=== PATIENT | female | born 1955 | race Caucasian/White ===

== ENCOUNTER → 2017-01-13 | Outpatient (CLI) | payer BC ==
[~2017-01-13] MED LIST: AMARYL2 MG PO; COUMADIN5 MG PO; COUMADIN7.5 MG PO; KEFLEX500 M1 PO; LEVOTHYROXINE75 MCG PO; LISINOPRIL-HCTZ1 T19 PO; LISINOPRIL20 MG PO; LIVALO2 MG PO; METFORMIN HCL500 M2 PO; PERCOCET 5-3251 TAB PO
[2017-01-13 11:19] LABS: ALBUMIN SERUM 3.5 g/dL (3.5-5.0); ALKALINE PHOSPHATASE 60 U/L (32-92); ALT (SGPT) 17 U/L (10-40); AST (SGOT) 24 U/L (10-42); BILIRUBIN,TOTAL 0.4 mg/dL (0.2-2.0); BLOOD UREA NITROGEN 12 mg/dL (9-23); BUN/CREATININE RATIO 17.14; CALCIUM SERUM 9.3 mg/dL (8.4-10.2); CARBON DIOXIDE 27 mmol/L (22-31); CHLORIDE 109 mmol/L (100-111); CHOLESTEROL 137 mg/dL (0-200); CREATININE SERUM 0.7 mg/dL (0.6-1.4); GLOM FILT RATE Estimated ABOVE60 mL/min (>60); GLUCOSE FASTING 135 mg/dL (70-110); HDL CHOLESTEROL 59 mg/dL (35-95); LDL CHOLESTEROL 63 mg/dL (-130); LDL/HDL RATIO 1 RATIO (0-4); POTASSIUM 5.1 mmol/L (3.5-5.1); PROTEIN TOTAL SERUM 6.8 g/dL (6.0-8.3); SODIUM 140 mmol/L (135-145); TRIGLYCERIDES 77 mg/dL (10-160)
== END | disposition home or self-care (01) ==
LOC: CLAB 09:33
PROVIDERS: Internal Medicine Endocrinology, Diabetes & Metabolism
DX: E78.5 Hyperlipidemia, unspecified (principal); E11.65 Type 2 diabetes mellitus with hyperglycemia
CPT/HCPCS: 36415; 80053; 80061; 82043; 82570; 83036

== ENCOUNTER → 2017-05-11 | Outpatient (CLI) | payer BC ==
[2017-05-11 15:22] LABS: CALCIUM SERUM 9.6 mg/dL (8.4-10.2); GLOM FILT RATE Estimated 59.9 mL/min (>60); POTASSIUM 4.9 mmol/L (3.5-5.1)
== END | disposition home or self-care (01) ==
LOC: CLAB 13:49
PROVIDERS: Internal Medicine Endocrinology, Diabetes & Metabolism
DX: E11.9 Type 2 diabetes mellitus without complications (principal); E03.9 Hypothyroidism, unspecified; I10 Essential (primary) hypertension
CPT/HCPCS: 36415; 80048; 83036; 84443

== ENCOUNTER → 2017-06-26 | Outpatient (CLI) | payer BC ==
--- NOTE | ~2017-06-26 | MY29 ---
[facility] A Service of [facility] & [facility] RADIOLOGY TEXT RESULTS PATIENT: SHIRLEY TURK LOCATION: [facility] : 51 UNIT #: [id number] AGE: [address]: Anastacio Michel MD SEX: F ORDER DR: [id number] [facility] [address] [place], [place] [address] [id number] O MR#: [id number] Acc #: [id number] NAME: SHIRLEY TURK : 1955 SEX: F STUDY DATE/TIME: 06/26/2017 11:25 UNIT: [facility] ROOM: STUDY DESCRIPTION: MY [facility] SCREENING W/ CAD BILAT Attending Physician: Anastacio Michel M.D. Ordering Physician: Anastacio Michel M.D. Primary Care Physician: Anastacio Michel M.D. MEDICAL IMAGING REPORT This report is preliminary unless electronic signature is present EXAM Digital screening mammogram, 06/26/2017, [facility]. HISTORY 61-year-old woman no risk elevation. Annual screen. COMPARISON Mammograms date to 01/10/2009 with most recent 06/23/2016. TECHNIQUE Digital imaging of each breast was completed utilizing screening protocol. Review includes FDA-approved CAD device. FINDINGS Breast parenchyma is partially fatty replaced and mildly heterogeneous. Mild parenchymal dominance is stable in the right breast. There are several calcifications with benign characteristics in each breast. I see no suspicious mass. There are no interval occurring microcalcifications and no suspicious architectural distortion. IMPRESSION Stable benign mammogram. Annual screening recommended. Patients over the age of 40 are entered into a reminder system with target due date for the next mammogram. A result letter will also be sent to the patient. BIRADS: 2 Benign finding. Dictated by... Syd Seo M.D. [facility] A Service of [facility] & [facility] RADIOLOGY TEXT RESULTS PATIENT: SHIRLEY TURK LOCATION: [facility] : 51 UNIT #: [id number] AGE: [address]: Anastacio Michel MD SEX: F ORDER DR: THIS IS AN ELECTRONICALLY VERIFIED REPORT Syd Seo M.D. at 06/26/2017 2:19 PM SERGO/shameka TD: 06/26/2017 14:11 JOB #: [id number] MEDICAL IMAGING REPORT Page 1 of 1 COPY
== END | disposition home or self-care (01) ==
LOC: CWCC 06-06 13:30
DX: Z12.31 Encounter for screening mammogram for malignant neoplasm of breast (principal)
CPT/HCPCS: G0202